=== PATIENT | male | born 1945 | race Caucasian/White ===

== ENCOUNTER → 2016-10-26 | Outpatient (CLI) | payer OTHER, BC ==
[~2016-10-26] MED LIST: ASPI1TAB83 PO; CRS5 PO; FAMO20TA11 PO; ISOS30TA3 PO; METO25TA56 PO; MONT1TAB3 PO; PRAV20TA PO; SYMIN/8045 INH; VNTHFA/IN INH
[2016-10-26 13:32] LABS: BASO % 0.1 %; BASO ABS # 0.01 K/uL (0-0.2); COMPLETE YES; EOS % 1.9 %; IG% 0.3 %; MEAN CELL VOLUME 88.1 fL (80-100); MEAN CORPUSCULAR HEMOGLOBIN 30.5 pg (25-34); MEAN CORPUSCULAR HGB CONC 34.7 g/dl (32-36); MEAN PLATELET VOLUME 10.5 fL (7.4-10.4); MONO % 6.5 %; NEUT % 53.2 %; PLATELET COUNT 177 K/uL (130-400); RED BLOOD COUNT 5.11 M/uL (4.7-6.1); WHITE BLOOD COUNT 7.37 K/uL (4.8-10.8)
[2016-10-26 14:07] LABS: ESTIMATED AVERAGE GLUCOSE 123 mg/dl; HA1C FLAG Normal (Normal)
[2016-10-26 16:20] LABS: ALB/GLOB RATIO 1.3 (0.9-2); ALKALINE PHOSPHATASE 89 U/L (45-117); AST/SGOT 24 U/L (15-37); BLOOD UREA NITROGEN 12 mg/dl (7-18); BUN/CREATININE RATIO 13.1 (10-20); CARBON DIOXIDE 25 mmol/L (21-32); CHLORIDE 107 mmol/L (98-107); CHOLESTEROL 135 mg/dl (0-200); CHOLESTEROL/HDL RATIO 3.3; CREATININE 0.88 mg/dl (0.60-1.40); GLUCOSE 115 mg/dl (70-99); HDL CHOLESTEROL 41 mg/dl; LDL CHOLESTEROL CALCULATED 74 mg/dl; POTASSIUM 3.8 mmol/L (3.5-5.1); PROSTATE SPECIFIC ANTIGEN 0.334 ng/ml (0.000-4.000); SODIUM 143 mmol/L (136-145); TRIGLYCERIDES 102 mg/dl (0-150); VERY LOW DENSITY LIPOPROT CALC 20 mg/dl
[2016-10-26 16:24] LABS: ALT/SGPT 34 U/L (12-78)
== END | disposition home or self-care (01) ==
LOC: C.LABMFLN 08:46
PROVIDERS: ATTEND Family Medicine
DX: D69.3 Immune thrombocytopenic purpura (principal); Z12.5 Encounter for screening for malignant neoplasm of prostate; E78.5 Hyperlipidemia, unspecified; R73.01 Impaired fasting glucose

== ENCOUNTER → 2016-11-01 | Outpatient (CLI) | payer OTHER, BC | END | disposition home or self-care (01) | LOC: C.LABMFLN 09:01 | PROVIDERS: ATTEND Family Medicine | DX: Z11.59 Encounter for screening for other viral diseases (principal); R94.31 Abnormal electrocardiogram [ECG] [EKG] ==

== ENCOUNTER → 2016-11-06 | Outpatient (CLI) | payer OTHER, BC ==
--- NOTE | 2016-11-06 09:21 | DIAGNOSTIC IMAGING REPORT ---
LEFT SHOULDER MIN 2 VIEWS ROUTINE CLINICAL HISTORY: Left shoulder pain. COMPARISON: None FINDINGS: Alignment of the left shoulder is anatomic. There is no fracture or suspicious lesion. Moderate AC joint arthritis is noted with mild glenohumeral joint arthritis. IMPRESSION: 1. 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 2. No fracture or dislocation of the left shoulder. Electronically signed by: Charanjit Riggs M.D. 11/06/2016 9:19 AM Dictated Date/Time: 11/06/2016 9:18 AM
== END | disposition home or self-care (01) ==
LOC: C.RAD1850 09:04
PROVIDERS: ATTEND Family Medicine
DX: M19.012 Primary osteoarthritis, left shoulder (principal)

== ENCOUNTER → 2016-11-08 | Outpatient (CLI) | payer OTHER, BC ==
[~2016-11-08] MED LIST changes: +PERFLUTREN LIPID MICROSPHERE (DEFINITY) IV ONE
--- NOTE | 2016-11-09 14:12 | EXERCISE STRESS ECHO ---
*NOTICE TO RECEIVING DEMOCRAT AGENCY This information is strictly Confidential and protected under [place] law. [place] law prohibits you from making any further disclosure of this information unless further disclosure is expressly permitted by the written consent of the person to whom it pertains or is authorized by law. A general authorization for the release of medical or other information is not sufficient for this purpose. Hospital accepts no responsibility if the information is made available to any other person, INCLUDING THE PATIENT. Interpretation Summary * Name: JOSE WAGGONER Study Date: 11/08/2016 11:40 AM BP: 146/77 mmHg * Patient Location: [facility] HR: 77 * : 1945 (M/d/yyyy) Gender: Male Height: 71 in * Age: 71 yrs Ethnicity: CA Weight: 193 lb * Ordering Physician: Dolly Johnston * Performed By: Shauna Rocha RDCS * * Reason For Study: Abnormal EKG, Dyspnea on Exertion * BSA: 2.1 m2 * -- Conclusions -- * Stress Echo: * 1. Abnormal stress echo at 100% MPHR. Right ventricle appeared to dilate following exercise and inferior wall did not appear to augment, and appeared mildly hypokinetic compared to baseline images. Right ventricle also appeared to dilate following exercise (although those images are not captured). * 2. Negative exercise ECG for ischemia at 100% MPHR. * 3. No chest pain reported. Study terminated due to leg cramping. Dyspnea was also reported. * 4. Appropriate blood pressure response to exercise. * 5. No arrhythmia. * 6. Technically difficult study, enhanced with IV Definity. * 7. Fair exercise tolerance. * Echo: * 1. Normal left ventricular size and systolic function. EF 60-65%. Very distal inferior wall and apical akinesis go/dyskinesis noted. No left ventricular hypertrophy. Type 1 diastolic dysfunction. * 2. No significant valvular abnormalities. Procedure Details * ECHOEX, CPT #[id number] * ECHO COLOR FLOW, CPT #[id number] * ECHO DOPPLER, CPT #[id number] * A contrast injection of Definity was performed to improve assessment of LV function. * Contrast was injected into an intravenous site in the left arm. * One vial of Definity ultrasound contrast was diluted in normal saline to a total volume of 10 ml. A total of '5' ml of solution was administered during imaging. * Lot # [id number] of Definity utilized for procedure. * Expiration date 1DEC17. * The attending nurse who injected the contrast agent was Karuna Sun RN. Left Ventricle * Normal left ventricular size and systolic function. EF 60-65%. Very distal inferior wall and apical akinesis go/dyskinesis noted. No left ventricular hypertrophy. Type 1 diastolic dysfunction. * Following exercise, left ventricular systolic function became hyperdynamic and LV cavity became smaller and more vigorous. Apical akinesis/dyskinesis related, also including the very distal inferior wall. There is no significant change in this area. The inferior wall did not appear to augment as vigorously compared to other wall segments, and possibly came mildly hypokinetic compared to baseline. Although not well represented in the selected images for review, the right ventricle became more dilated following exercise. This was personally visualized while standing at the bedside during the study. * Ejection Fraction = 60-65%. Right Ventricle * The right ventricle is normal in size and function. Atria * The left atrial size is normal. * Right atrial size is normal. * There is no evidence of atrial septal defect, but resolution does not allow assessment for a patent foramen ovale. Mitral Valve * The mitral valve is normal in structure and function. * There is no mitral valve stenosis. * There is trace mitral regurgitation. Tricuspid Valve * The tricuspid valve is not well visualized, but is grossly normal. * There is no tricuspid stenosis. * Significant tricuspid regurgitation is absent. Aortic Valve * The aortic valve is normal in structure and function. * The aortic valve is trileaflet. * No hemodynamically significant valvular aortic stenosis. * No aortic regurgitation is present. Pulmonic Valve * The pulmonary valve is inadequately visualized, but the Doppler data is adequate for interpretation. * There is no significant pulmonary regurgitation. Great Vessels * The aortic root is normal size. Pericardium * There is no pericardial effusion. Stress Parameters * NSR at 93 bpm. Anterior infarct. Possible inferior infarct. * Stress ECG: No ST changes. No arrhythmias. * No arrhythmia were noted with stress. * The stress portion of this study was personally supervised by the undersigned interpreting physician. * Rest heart rate was '77' BPM. * Rest blood pressure was '146/77' * Maximum heart rate achieved was 151 bpm. * Maximum heart rate was 100 % of maximum age-predicted heart rate. * Maximum blood pressure was '173/76' * Total exercise time was '08:21' * Maximum exercise MET level achieved was '10.10' METS * Maximum treadmill speed was '3.40' miles per hour. * Maximum treadmill elevation was '14.00'% grade. * Exercise was terminated due to 'leg cramp and dyspnea' MMode 2D Measurements and Calculations IVSd 0.90 cm IVSs 1.4 cm LVIDd 4.2 cm LVIDs 2.8 cm LVPWd 1.1 cm LVPWs 1.4 cm IVS/LVPW 0.83 FS 32.9 % EDV(Teich) 78.0 ml ESV(Teich) 29.8 ml EF(Teich) 61.8 % EDV(cubed) 73.4 ml ESV(cubed) 22.2 ml EF(cubed) 69.7 % % IVS thick 52.3 % % LVPW thick 27.4 % LV mass(C)d 134.6 grams LV mass(C)dI 64.8 grams/m\S\2 LV mass(C)s 124.8 grams LV mass(C)sI 60.1 grams/m\S\2 SV(Teich) 48.2 ml SI(Teich) 23.2 ml/m\S\2 SV(cubed) 51.2 ml SI(cubed) 24.7 ml/m\S\2 Ao root diam 3.2 cm Ao root area 7.9 cm\S\2 ACS 1.9 cm LA dimension 3.4 cm LA/Ao 1.1 LVAd ap4 28.9 cm\S\2 LVLd ap4 8.0 cm EDV(MOD-sp4) 86.6 ml EDV(sp4-el) 87.9 ml LVAs ap4 15.7 cm\S\2 LVLs ap4 7.4 cm ESV(MOD-sp4) 28.5 ml ESV(sp4-el) 28.5 ml EF(MOD-sp4) 67.1 % EF(sp4-el) 67.6 % LVAs ap2 13.8 cm\S\2 LVLs ap2 6.6 cm ESV(MOD-sp2) 24.4 ml ESV(sp2-el) 24.6 ml LVLs %diff -12.09 % ESV(MOD-bp) 27.7 ml SV(MOD-sp4) 58.1 ml SI(MOD-sp4) 28.0 ml/m\S\2 SV(sp4-el) 59.4 ml SI(sp4-el) 28.6 ml/m\S\2 Doppler Measurements and Calculations MV E max christian 77.6 cm/sec MV A max christian 85.9 cm/sec MV E/A 0.90 MV dec time 0.20 sec Ao V2 max 132.5 cm/sec Ao max PG 7.0 mmHg Ao max PG (full) 2.0 mmHg LV V1 max PG 5.1 mmHg LV V1 max 112.5 cm/sec TV E max christian 48.0 cm/sec PA V2 max 137.9 cm/sec PA max PG 7.6 mmHg PI max christian 137.9 cm/sec PI max PG 7.6 mmHg PI dec slope 102.8 cm/sec\S\2 PI P1/2t 392.9 msec
== END | disposition home or self-care (01) ==
LOC: C.CPL 11:21
PROVIDERS: ATTEND Family Medicine
DX: R06.02 Shortness of breath (principal); R94.31 Abnormal electrocardiogram [ECG] [EKG]

== ENCOUNTER → 2016-11-30 | Outpatient (CLI) | payer OTHER, BC ==
[~2016-11-30] MED LIST changes: -PERFLUTREN LIPID MICROSPHERE (DEFINITY) IV ONE
[2016-11-30 12:52] LABS: HEMATOCRIT 44.9 % (42-52); MEAN CELL VOLUME 90.7 fL (80-100); MEAN CORPUSCULAR HEMOGLOBIN 30.1 pg (25-34); MEAN CORPUSCULAR HGB CONC 33.2 g/dl (32-36); MEAN PLATELET VOLUME 10.5 fL (7.4-10.4); PARTIAL THROMBOPLASTIN RATIO 0.9; PLATELET COUNT 173 K/uL (130-400); PROTHROMBIN TIME (PATIENT) 10.7 SECONDS (9.0-12.0); RED BLOOD COUNT 4.95 M/uL (4.7-6.1); WHITE BLOOD COUNT 9.53 K/uL (4.8-10.8)
[2016-11-30 13:27] LABS: BLOOD UREA NITROGEN 14 mg/dl (7-18); CALCIUM 9.1 mg/dl (8.5-10.1); CARBON DIOXIDE 26 mmol/L (21-32); CHLORIDE 108 mmol/L (98-107); CREATININE 0.81 mg/dl (0.60-1.40); GLUCOSE 83 mg/dl (70-99); POTASSIUM 3.8 mmol/L (3.5-5.1); SODIUM 142 mmol/L (136-145)
== END | disposition home or self-care (01) ==
LOC: C.LABMFLN 10:57
PROVIDERS: ATTEND Internal Medicine Cardiovascular Disease
DX: Z01.818 Encounter for other preprocedural examination (principal)

== ENCOUNTER → 2016-12-01 | Outpatient (CLI) | payer OTHER, BC ==
--- NOTE | 2016-12-01 09:20 | DIAGNOSTIC IMAGING REPORT ---
TWO VIEW CHEST CLINICAL HISTORY: Preoperative examination. FINDINGS: PA and lateral chest radiographs are obtained. No prior studies are available for comparison at the time of dictation. The cardiomediastinal silhouette is unremarkable. The lungs and pleural spaces are clear. There is no pneumothorax. The bony thorax appears intact. IMPRESSION: No active disease in the chest. Electronically signed by: Nixon Padron M.D. 12/01/2016 9:18 AM Dictated Date/Time: 12/01/2016 9:18 AM
== END | disposition home or self-care (01) ==
LOC: C.RAD1850 09:00
PROVIDERS: ATTEND Internal Medicine Cardiovascular Disease
DX: Z01.818 Encounter for other preprocedural examination (principal)

== ENCOUNTER → 2016-12-04 | Day surgery (SDC) | payer OTHER, BC ==
[~2016-12-04] VITALS: Ht 180.3 cm; Wt 89.0 kg
[~2016-12-04] MED LIST changes: +ACETAMINOPHEN 325 MG TAB PO PRN; +FENTANYL CITRATE INJ 50 MCG/1 ML 2 ML VIAL ONE; +HEPARIN SOD (PORCINE) 1000 UNIT/ML 10 ML VIAL ONE; +MIDAZOLAM HCL 1 MG/ML 2ML VIAL ONE; +NITROGLYCERIN 0.4 MG SL PER TAB CHARGE SL PRN; +NITROGLYCERIN/D5W 100MCG/ML 20ML SYR ONE; +NiCARDipine HCL INJ 2.5 MG/ML 10 ML AMP ONE; +ONDANSETRON INJ 2 MG/ML 2 ML VIAL IV PRN; +PATIENT'S ALLERGY INFO NEEDS ENTERED SCH; +ROSUVASTATIN CALCIUM 5 MG TAB PO SCH; +SODIUM CHLORIDE 0.9% 1000ML 1,000 ML IV SCH; +SODIUM CHLORIDE 0.9% 1000ML 250 ML IV PRN
[2016-12-04 07:19] VITALS: BP 156/83; PULSE 65; TEMP 36.7; O2SAT 97; Ht 180.3 cm; Wt 89.0 kg
--- NOTE | 2016-12-04 07:46 | History & Physical Bridge Note ---
H&P Re-Evaluation Bridge Note: I have examined the patient, reviewed the History & Physical and in the interval since the performance of the History & Physical I have noted the following changes of clinical significance: No changes noted
--- NOTE | 2016-12-04 07:47 | Procedure Note ---
Pre-Mod Sedation Assessment General Date of Moderate Sedation: Dec 04, 2016. Vital Signs: Vital Signs Past 12 Hours Date Time Temp Pulse Resp B/P Pulse Ox O2 Delivery O2 Flow Rate FiO2 12/04/16 07:19 36.7 65 16 156/83 97 Room Air Review Cardiovascular: regular rate, rhythm, no murmur Abdomen: non tender, soft Lungs: lungs clear Pre-Sedation Airway Assessment Oral Cavity: Dentures Short Thick Neck: No Hx of Sleep Apnea: No Smoking Status: Never Smoker Procedure Planning Contraindications-for Mod Sed: None Yes Notes The planned sedation has been discussed with the patient and consent obtained. I have identified the patient, determined the appropriateness of sedation and have assessed the patient immediately prior to the procedure. All medicine(s) and interventions are by my order.
--- NOTE | 2016-12-04 09:18 | Procedure Note ---
Post-Mod Sedation Assessment General Date of Moderate Sedation Dec 04, 2016. Vital Signs: Vital Signs Past 12 Hours Date Time Temp Pulse Resp B/P Pulse Ox O2 Delivery O2 Flow Rate FiO2 12/04/16 07:19 36.7 65 16 156/83 97 Room Air Review - Discharge Criteria Vital Signs Stable: Yes Alert/Oriented/Conversant: Yes Returned to Baseline Mental St: Yes Nausea Absent/Minimal: Yes Pain/Discomfort/Absent/Minimal: Yes Normal/Baseline Respirations: Yes Active Bleeding?: No
--- NOTE | 2016-12-04 09:35 | Cardiac Catheterization ---
Procedure Note Procedure Date Dec 04, 2016. Pre-Procedure Diagnosis Positive Stress Test AUC Score 9 Post-Procedure Diagnosis Severe CAD, Elevated Intracardiac Pressures Procedure(s) Performed Coronary Angiography, Left Heart Cath Science Liaison Dr. Quinn Maintenance Shop Laborer(s) Flores Estimated Blood Loss < 20 ml Medication(s) Fentanyl, Heparin, Nicardipine, Versed, Lidocaine 1% Summary of Findings Coronary angiography: 1. Left main coronary artery: The LMCA is calcified. Distal LM CA 20%. 2. Left anterior descending: Calcifications noted within the proximal LAD. Ostial LAD 50-60%. Mid LAD 70%. Distal LAD sequential lesions of 60%, 80%, and 80%. Lad wraps around the apex. Small D1 without significant CAD. Medium caliber D2 mid 90% stenosis. 3. Circumflex: Codominant large caliber vessel. Ostial circumflex 90% extending to bifurcation of large OM1. Large OM1 and medium caliber OM2 without significant CAD. Circumflex PDA 90% proximally. 4. Right coronary artery: The RCA is medium in caliber and codominant. Ostial RCA 80%. Mid RCA diffuse 90% stenosis. RCA PDA without significant CAD. Left heart catheterization: 1. Left ventriculography was not performed. 2. No significant aortic stenosis. Peak to peak gradient across the aortic valve 6 mmHg. 3. Moderately elevated LVEDP; 22 mmHg. Impression: 1. Severe multivessel CAD as noted above. 2. Co dominant circumflex/RCA. 3. No significant aortic stenosis. 4. Moderately elevated LVEDP. Plan: 1. Referral for CT surgery evaluation for consideration of CABG. 2. High-intensity statin therapy. 3. Continue anti-platelet therapy. Hemodynamics Rest Ao: 111/62 Final Ao: 124/66 LV: 119/6 LVEDP 22 mmHg Recommendations CABG Specimens None Radiation Exposure (mGy) 1313 mGy. Fluoro time 5.4 min. Contrast (mls) 65 ml Procedural Complication(s) None Disposition Mold Insert Changer Holding/Recovery ACC Data Cardiac Status Clinical evaluation leading to the procedure CAD Presntation: Positive Stress Test Anginal Classification: No symptoms Heart Failure: Yes, NYHA Class: CCS II Cardiogenic Shock w/in 24Hrs: No Cardiac Arrest w/in 24Hrs: No Imaging studies past 6 months: No Stress studies past 6 months: Yes Standard Exercise Stress Test: Yes - Negative Stress Echocardiogram: Yes - Positive, Risk/Extent of Ischemia (High) Stress Testing w/SPECT MPI: No Cardiac CTA: No Coronary Anatomy Dominant: Co-dominant Left Main (% Stenosis): Distal (20%) LAD (% Stenosis): Proximal (60%), Mid (70%), Distal (60% followed by 80% and 80 %) D1 (% Stenosis): Normal D2 (% Stenosis): Mid (90%) Circumflex (% Stenosis): Ostial (90%) OM1 (% Stenosis): Normal OM2 (% Stenosis): Normal L PDA (% Stenosis): Proximal (90%) RCA (% Stenosis): Ostial (80%), Mid (90%) R PDA (% Stenosis): Normal Left Ventricular Angiography EF (%): n/a Diagnostic Physician's Name: Oneil Quinn MD Status: Elective Closure Device Percutaneous Entry Location: Radial Closure Device: Radial Band Recommendations: CABG
--- NOTE | 2016-12-04 10:55 | Discharge Instructions ---
Discharge Instructions Visit Reason for Visit: Cardiac catheterization due to abnormal stress echo. Discharge Discharge Diagnosis / Problem: Severe multivessel coronary artery disease. Discharge Goals Goal(s): Diagnostic testing Activity Recommendations Activity Limitations: per Instructions/Follow-up section Anesthesia . Post Anesthesia Instructions: If you have had General Anesthesia or IV Sedation: * Do not drive today. * Resume driving when surgeon permits. * Do not make important decisions or sign legal documents today. * Call surgeon for: 1. Temperature elevations greater than 101 degrees F. 2. Uncontrollable pain. 3. Excessive bleeding. 4. Persistent nausea and vomiting. 5. Medication intolerance (nausea, vomiting or rash). * For nausea and vomiting use only clear liquids such as: tea, soda, bouillon until nausea subsides, then gradually increase diet as tolerated. * If you have any concerns or questions, call your surgeon's office. If physician is unavailable and it is an emergency, call 911 or go to the nearest emergency room. . Instructions / Follow-Up Instructions / Follow-Up ACTIVITY RECOMMENDATIONS: Excess manipulation of the wrist should be avoided for the next 24-48 hours. * No lifting over 2 pounds (approximately a 1/2 gallon of milk) with the utilized arm for 24 hours. * No strenuous activity such as bowling or tennis for 3 days. * Keep the site of the procedure covered with a bandage for 24 hours. *You may shower the day after the procedure. Do not take a tub bath or submerge the puncture site in water for the next 3 days. *Do not operate any motorized equipment for 3 days. SPECIAL CARE INSTRUCTIONS: The site may be slightly bruised and sore following your procedure. Should any of the following occur, contact the Dr. who performed your procedure. 1. Redness/inflammation, swelling, chills, or fever, or colored drainage at procedure site within 3-7 days after your procedure. 2. Coldness, discoloration, ongoing numbness, severe pain, or swelling. Expect mild tingling of hand and tenderness at the puncture site for up to three days. If this persists beyond three days, or other symptoms develop, notify the Dr. who performed your procedure. BLEEDING: If the procedure site on your wrist begins to bleed, do not panic 1. Place 1 or 2 fingers firmly just slightly above the insertion site to stop the bleeding. You may be able to feel your pulse as you hold pressure. 2. Lift your finger after 5 minutes to see if the bleeding has stopped. 3. Once the bleeding has stopped, gently wipe the wrist area clean with a bandage. * If the bleeding from your wrist does not stop after 10 minutes, or if there is a large amount of bleeding or spurting, call 911 ([address] drive yourself to the hospital). SKIN IRRITATION: * You may experience some redness and/or swelling in the area where radiation was administered. If any skin irritation occurs, please contact your family physician. FOLLOW UP VISIT: Keep any scheduled doctor appointments. 1. [facility] Cardiothoracic Surgery department will be contacting you today with time/date of appointment to discuss your coronary artery disease and evaluation for bypass surgery. Take the DVDs of stress echo and cardiac cath with you to the appointment. Diet Recommendations Recommended Home Diet: low cholesterol Procedures Procedures Performed: Coronary angiography Left heart catheterization Pending Studies Studies pending at discharge: no Medical Emergencies . Who to Call and When: Medical Emergencies: If at any time you feel your situation is an emergency, please call 911 immediately. . Non-Emergent Contact Non-Emergency issues call your: Fittings Tightener If you need instruction/directions from [facility], call . . . "Provider Documentation" section prepared by Oneil Thompson.
[2016-12-04 11:30] VITALS: BP 127/56; PULSE 74; O2SAT 96
== END | disposition home or self-care (01) ==
LOC: C.CATH 06:50
PROVIDERS: ATTEND Internal Medicine Cardiovascular Disease
DX: I25.10 Atherosclerotic heart disease of native coronary artery without angina pectoris (principal); R06.02 Shortness of breath; E78.5 Hyperlipidemia, unspecified; R94.39 Abnormal result of other cardiovascular function study

== ENCOUNTER → 2017-01-29 | Outpatient (CLI) | payer OTHER, BC ==
[~2017-01-29] MED LIST changes: -ACETAMINOPHEN 325 MG TAB PO PRN; -FENTANYL CITRATE INJ 50 MCG/1 ML 2 ML VIAL ONE; -HEPARIN SOD (PORCINE) 1000 UNIT/ML 10 ML VIAL ONE; -MIDAZOLAM HCL 1 MG/ML 2ML VIAL ONE; -NITROGLYCERIN 0.4 MG SL PER TAB CHARGE SL PRN; -NITROGLYCERIN/D5W 100MCG/ML 20ML SYR ONE; -NiCARDipine HCL INJ 2.5 MG/ML 10 ML AMP ONE; -ONDANSETRON INJ 2 MG/ML 2 ML VIAL IV PRN; -PATIENT'S ALLERGY INFO NEEDS ENTERED SCH; -PRAV20TA PO; -ROSUVASTATIN CALCIUM 5 MG TAB PO SCH; -SODIUM CHLORIDE 0.9% 1000ML 1,000 ML IV SCH; -SODIUM CHLORIDE 0.9% 1000ML 250 ML IV PRN
[2017-01-29 13:33] LABS: BASO % 0.3 %; BASO ABS # 0.02 K/uL (0-0.2); COMPLETE YES; EOS % 8.1 %; HEMATOCRIT 42.6 % (42-52); IG% 0.3 %; LYMPH % 28.4 %; LYMPH ABS # 2.07 K/uL (1.2-3.4); MEAN CELL VOLUME 89.1 fL (80-100); MEAN CORPUSCULAR HGB CONC 31.5 g/dl (32-36); MEAN PLATELET VOLUME 10.3 fL (7.4-10.4); MONO % 6.9 %; PLATELET COUNT 205 K/uL (130-400); RED BLOOD COUNT 4.78 M/uL (4.7-6.1); WHITE BLOOD COUNT 7.29 K/uL (4.8-10.8)
[2017-01-29 15:05] LABS: ALT/SGPT 35 U/L (12-78); BLOOD UREA NITROGEN 11 mg/dl (7-18); BUN/CREATININE RATIO 14.2 (10-20); CARBON DIOXIDE 27 mmol/L (21-32); CHLORIDE 106 mmol/L (98-107); CHOLESTEROL 96 mg/dl (0-200); CREATININE 0.74 mg/dl (0.60-1.40); GLUCOSE 105 mg/dl (70-99); POTASSIUM 3.8 mmol/L (3.5-5.1); SODIUM 142 mmol/L (136-145); TRIGLYCERIDES 62 mg/dl (0-150); VERY LOW DENSITY LIPOPROT CALC 12 mg/dl
[2017-01-29 15:09] LABS: ALB/GLOB RATIO 1.1 (0.9-2); ALKALINE PHOSPHATASE 112 U/L (45-117); AST/SGOT 19 U/L (15-37); CALCIUM 9.3 mg/dl (8.5-10.1); CHOLESTEROL/HDL RATIO 2.2; HDL CHOLESTEROL 44 mg/dl; LDL CHOLESTEROL CALCULATED 40 mg/dl
== END | disposition home or self-care (01) ==
LOC: C.LABMFLN 08:26
PROVIDERS: ATTEND Family Medicine
DX: I25.10 Atherosclerotic heart disease of native coronary artery without angina pectoris (principal); E78.5 Hyperlipidemia, unspecified

== ENCOUNTER → 2017-10-25 | Outpatient (CLI) | payer OTHER, BC ==
[2017-10-25 13:01] LABS: BASO % 0.3 %; BASO ABS # 0.02 K/uL (0-0.2); EOS % 3.3 %; EOS ABS # 0.26 K/uL (0-0.5); HEMATOCRIT 46.9 % (42-52); HEMOGLOBIN 15.6 g/dL (14.0-18.0); IG# 0.01 K/uL (0.00-0.02); LYMPH % 31.5 %; LYMPH ABS # 2.47 K/uL (1.2-3.4); MEAN CELL VOLUME 92.5 fL (80-100); MEAN CORPUSCULAR HEMOGLOBIN 30.8 pg (25-34); MEAN CORPUSCULAR HGB CONC 33.3 g/dl (32-36); MONO ABS # 0.55 K/uL (0.11-0.59); NEUT % 57.8 %; NEUT ABS # 4.52 K/uL (1.4-6.5); PLATELET COUNT 144 K/uL (130-400); WHITE BLOOD COUNT 7.83 K/uL (4.8-10.8)
[2017-10-25 13:18] LABS: ALBUMIN 3.8 gm/dl (3.4-5.0); BLOOD UREA NITROGEN 15 mg/dl (7-18); CARBON DIOXIDE 29 mmol/L (21-32); CHOLESTEROL 82 mg/dl (0-200); CREATININE 0.92 mg/dl (0.60-1.40); GLUCOSE 119 mg/dl (70-99); POTASSIUM 3.9 mmol/L (3.5-5.1); SODIUM 140 mmol/L (136-145)
[2017-10-25 13:26] LABS: ALKALINE PHOSPHATASE 93 U/L (45-117); ALT/SGPT 34 U/L (12-78); AST/SGOT 16 U/L (15-37); LDL CHOLESTEROL CALCULATED 26 mg/dl
== END | disposition home or self-care (01) ==
LOC: C.LABMFLN 08:06
PROVIDERS: ATTEND Family Medicine
DX: I25.10 Atherosclerotic heart disease of native coronary artery without angina pectoris (principal); E78.5 Hyperlipidemia, unspecified; R73.01 Impaired fasting glucose; Z12.5 Encounter for screening for malignant neoplasm of prostate